=== PATIENT | male | born 1995 | race Two or more races ===

== ENCOUNTER 2019-05-02 22:29 | Emergency (ER) | payer SELFPAY ==
[2019-05-02] MEDS ORDERED: CLINDAMYCIN 900 MG/D5W RTU 900 MG/50 ML RTUPB IV ONE (23:17)
--- NOTE | 2019-05-02 23:19 | ER Document Report ---
ED Medical Screen (RME) - General Chief Complaint: Rash Stated Complaint: RASH ON LEFT LEG Time Seen by Provider: 05/02/19 23:16 Notes: 23-year-old male coming in today with a swollen red warm left lower leg. Symptoms for 2 to 3 days. History of low-grade fever. Does not have any medical problems to his knowledge. Does not remember if he got scratched or how the redness started. No chest pain or shortness of breath. I have treated and performed a rapid initial assessment of this patient. A comprehensive ED assessment and evaluation of the patient, analysis of test results and completion of medical decision making process will be conducted by additional ED providers. PHYSICAL EXAMINATION: GENERAL: Nontoxic LUNGS: Respiratory distress HEART: Perfused ABDOMEN: Nondistended Extremities: Left lower extremity moderate erythema and edema and tenderness. No calf squeeze tenderness. Dorsalis pedis and posterior tibial pulses 2+ bilateral lower extremities. NEUROLOGICAL: Normal speech, normal gait. PSYCH: Normal mood, normal affect. TRAVEL OUTSIDE OF THE [place] IN LAST 30 DAYS: No - Related Data Allergies/Adverse Reactions: No Known Allergies Allergy (Verified 05/02/19 22:43) Physical Exam - Vital signs Vitals: Temp Pulse Resp BP Pulse Ox 98.9 F 98 18 123/83 100 05/02/19 22:47 05/02/19 22:47 05/02/19 22:47 05/02/19 22:47 05/02/19 22:47 Course - Vital Signs Vital signs: Temp Pulse Resp BP Pulse Ox 98.9 F 98 18 123/83 100 05/02/19 22:47 05/02/19 22:47 05/02/19 22:47 05/02/19 22:47 05/02/19 22:47
[2019-05-02] MEDS ORDERED: HYDROCODONE/ACETAMINOPHEN 5-325 MG TABLET PO ONE (23:20)
[2019-05-03] MEDS ORDERED: HYDROCODONE/ACETAMINOPHEN 5-325 MG TABLET ONE (02:08)
[2019-05-03 02:36] LABS: ABSOLUTE BASOPHILS # (AUTO) 0.1 10^3/uL (0.0-0.2); ABSOLUTE LYMPHOCYTES (AUTO) 3.1 10^3/uL (0.5-4.7); ABSOLUTE MONOCYTES (AUTO) 1.3 10^3/uL (0.1-1.4); ABSOLUTE NEUT (AUTO) 6.1 10^3/uL (1.7-8.2); BASOPHILS % (AUTO) 0.5 % (0-2); EOSINOPHILS % (AUTO) 0.3 % (0-6); HEMATOCRIT 41.8 % (37.9-51.0); HEMOGLOBIN 14.1 g/dL (13.5-17.0); LYMPHOCYTES % (AUTO) 29.3 % (13-45); MEAN CORPUSCULAR HEMOGLOBIN 26.1 pg (27.0-33.4); MEAN CORPUSCULAR HGB CONC 33.7 g/dL (32.0-36.0); MEAN CORPUSCULAR VOLUME 78 fl (80-97); MONOCYTES % (AUTO) 12.3 % (3-13); PLATELET COUNT 316 10^3/uL (150-450); RED CELL DISTRIBUTION WIDTH 13.8 % (11.5-14.0); SEGMENTED NEUTROPHILS % (AUTO) 57.6 % (42-78); TOTAL CELLS COUNTED % (AUTO) 100 %; WHITE BLOOD COUNT 10.6 10^3/uL (4.0-10.5)
[2019-05-03 02:54] LABS: ALANINE AMINOTRANSFERASE 51 U/L (21-72); ALBUMIN 4.8 g/dL (3.5-5.0); ALKALINE PHOSPHATASE 100 U/L (38-126); ANION GAP 14 (5-19); ASPARTATE AMINO TRANSFERASE 27 U/L (17-59); BILIRUBIN,DIRECT 0.3 mg/dL (0.0-0.4); BILIRUBIN,TOTAL 0.5 mg/dL (0.2-1.3); BLOOD UREA NITROGEN 14 mg/dL (7-20); CALCIUM 10.4 mg/dL (8.4-10.2); CARBON DIOXIDE 21 mmol/L (22-30); CHLORIDE 105 mmol/L (98-107); GLUCOSE 95 mg/dL (75-110); POTASSIUM 3.8 mmol/L (3.6-5.0); SODIUM 140.4 mmol/L (137-145); TOTAL PROTEIN 7.7 g/dL (6.3-8.2)
[2019-05-03 02:55] VITALS: BP 143/84
--- NOTE | 2019-05-03 05:44 | ER Document Report ---
ED General - General Chief Complaint: Rash Stated Complaint: RASH ON LEFT LEG Time Seen by Provider: 05/02/19 23:16 Primary Care Provider: [facility] [Provider Group] - Follow up as needed Notes: 23-year-old male presents with 3 days of left leg redness swelling and chills. Has gone slightly worse since the third day. No having history of trauma no bubbles bullae or discoloration other than the redness. Not febrile today. No diabetes history. No injuries. TRAVEL OUTSIDE OF THE [place] IN LAST 30 DAYS: No - Related Data Allergies/Adverse Reactions: No Known Allergies Allergy (Verified 05/02/19 22:43) Past Medical History - Social History Smoking Status: Never Smoker Family History: None Patient has suicidal ideation: No Patient has homicidal ideation: No Renal/ Medical History: Denies: Hx Peritoneal Dialysis Review of Systems - Review of Systems Notes: REVIEW OF SYSTEMS GEN: Denies fever, chills, weight loss ENT: Denies sore throat, nasal discharge, ear pain EYES: Denies blurry vision, eye pain, discharge CV: Denies chest pain, palpitations, edema RESP: Denies cough, shortness of breath, wheezing GI: Denies abdominal pain, nausea, vomiting, diarrhea MSK: Denies joint pain/swelling, edema, SKIN: Denies rash, skin lesions LYMPH: Denies swollen glands/lymph nodes NEURO: Denies headache, focal weakness or numbness, dizziness PSYCH: Denies depression, suicidal or homicidal ideation PHYSICAL EXAMINATION General: No acute distress, well-nourished Head: Atraumatic, normocephalic ENT: Mouth normal, oropharynx moist, no exudates or tonsillar enlargement Eyes: Conjunctiva normal, pupils equal, lids normal Neck: No JVD, supple, no guarding CVS: Normal rate, regular rhythm, no murmurs Resp: No resp distress, equal and normal breath sounds bilaterally GI: Nondistended, soft, no tenderness to palpation, no re ; Edema of the left calf and manzano with well-defined erythema no bullae minimal tenderness. Back: No CVA or midline TTP Skin: No rash, warm Lymphatic: No lymphadeopathy noted Neuro: Awake, alert. Face symmetric. GCS 15. Physical Exam - Vital signs Vitals: Temp Pulse Resp BP Pulse Ox 98.9 F 98 18 123/83 100 05/02/19 22:47 05/02/19 22:47 05/02/19 22:47 05/02/19 22:47 05/02/19 22:47 Course - Re-evaluation Re-evalutation: 05/03/19 11:53 Simple lower extreme the cellulitiswhite count is not significantly elevated no fever no sepsis and no diabetes both in history and on labs. Will stress elevation and prescribed p.o. Keflex with strict follow-up instructions. Outlined area of erythema. Very low suspicion of necrotizing infection or DVT - Vital Signs Vital signs: Temp Pulse Resp BP Pulse Ox 98.6 F 86 18 143/84 H 97 05/03/19 02:54 05/03/19 02:54 05/03/19 02:54 05/03/19 02:54 05/03/19 02:54 - Laboratory Result Diagrams: 05/03/19 02:00 05/03/19 02:00 Laboratory results interpreted by me: 05/03/19 05/03/19 02:00 02:00 WBC 10.6 H MCV 78 L MCH 26.1 L Carbon Dioxide 21 L Calcium 10.4 H Discharge - Discharge Clinical Impression: Cellulitis of left lower extremity Condition: Good Disposition: HOME, SELF-CARE Instructions: Cellulitis ([facility]) Prescriptions: Cephalexin Monohydrate [Keflex 500 mg Capsule] 500 mg PO QID #40 capsule Referrals: [facility] [Provider Group] - Follow up as needed
== END 2019-05-03 05:55 | disposition home or self-care (01) ==
LOC: ER 22:29
DX: L03.116 Cellulitis of left lower limb (principal); R21 Rash and other nonspecific skin eruption
CPT/HCPCS: 99283; 96360; 36415; 87040; 85025; 80053; J3490